=== PATIENT | male | born 2000 | race Caucasian/White ===

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

== ENCOUNTER 2022-09-24 11:04 | Emergency (ER) | payer OTHER ==
[~2022-09-24] VITALS: Ht 190.5 cm; Wt 81.6 kg
[2022-09-24 11:14] VITALS: BP 125/62
[2022-09-24 11:23] VITALS: BP 125/62
[2022-09-24 11:34] VITALS: BP_SYST 125
[2022-09-24] MEDS ORDERED: TORADOL ONE (12:17)
[2022-09-24] MEDS ORDERED: BOOSTRIX IM ONE (12:30)
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
[2022-09-24] MEDS: TORADOL IM STA (12:48)
--- NOTE | 2022-09-24 12:52 | DIREP ---
PROCEDURE:CT HEAD OR BRAIN W/O CONTRAST COMPARISON:[facility], CT, CT MAXILLOFACIAL W/O, 09/24/2022, 12:27 PM. [facility], CR, XRAY KNEE 3 VIEWS-RT, 09/24/2022, 12:30 PM. [facility], CR, XRAY CHEST 2 VWS, 09/24/2022, 12:30 PM. INDICATIONS:head injury TECHNIQUE:Axial CT images were obtained from vertex to the skull base without the administration of IV contrast. FINDINGS: VENTRICLES: The ventricles are normal in size and configuration. No hydrocephalus. CEREBRUM: Normal cerebral morphology with appropriate patino white matter differentiation. No intracranial hemorrhage, mass-effect, or midline shift. No CT evidence of acute infarction. CEREBELLUM: Normal. BRAINSTEM: Normal. BASAL CISTERNS: Normal. SKULL: Normal. No skull fracture. SINUSES: Fractures involving the anterior/inferior aspects of the bilateral frontal sinuses and the anterior jones of the bilateral ethmoid air cells/medial orbital jones, as described on the concurrent maxillofacial CT. Fluid levels are seen within the bilateral frontal sinuses, ethmoid air cells, and left maxillary sinus. Small amount of inspissated secretions in the right maxillary sinus. Sphenoid air cells and mastoid air cells are clear. OTHER: Comminuted bilateral nasal bone fractures are incompletely visualized and described on the concurrent maxillofacial CT. Moderate soft tissue swelling involving the midline of the inferior frontal scalp and overlying the bridge of the nose. CONCLUSION: 1. No acute intracranial abnormality. 2. Partially visualized comminuted bilateral nasal bone fractures with additional fractures involving the anterior/inferior aspect of the frontal sinuses and anterior ethmoid air cells/medial orbital jones with overlying soft tissue swelling and associated fluid in the frontal sinuses, ethmoid air cells, and left maxillary sinus. Please see concurrent maxillofacial CT for details. Dictated by: Sunny Landon MD on 09/24/2022 at 12:46 PM
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
== END 2022-09-24 14:37 | disposition home or self-care (01) ==
LOC: ER 11:04
DX: S02.2XXA Fracture of nasal bones, initial encounter for closed fracture (principal); S80.211A Abrasion, right knee, initial encounter; S00.81XA Abrasion of other part of head, initial encounter; F84.0 Autistic disorder; F10.20 Alcohol dependence, uncomplicated; F17.210 Nicotine dependence, cigarettes, uncomplicated; Y04.8XXA Assault by other bodily force, initial encounter; Y93.89 Activity, other specified; Y92.89 Other specified places as the place of occurrence of the external cause; Y99.8 Other external cause status
CPT/HCPCS: 99284; 70486; 71046; 96372; 70450; 73562; J1885